=== PATIENT | male | born 1960 | race Caucasian/White ===

== ENCOUNTER → 2017-04-16 | Outpatient (CLI) | payer OTHER | LOC: FIMAGING 07:07 | PROVIDERS: ATTEND Ophthalmology Pediatric Ophthalmology and Strabismus Specialist | DX: H54.61 Unqualified visual loss, right eye, normal vision left eye (principal); H57.11 Ocular pain, right eye ==

== ENCOUNTER → 2018-08-25 | Outpatient (CLI) | payer OTHER ==
[~2018-08-25] MED LIST: IOPAMIDOL (ISOVUE-300) 100 ML BTL ONE
== END ==
LOC: FIMAGING 12:41
PROVIDERS: ATTEND Internal Medicine Gastroenterology
DX: K57.30 Diverticulosis of large intestine without perforation or abscess without bleeding (principal); R10.12 Left upper quadrant pain; I77.89 Other specified disorders of arteries and arterioles
CPT/HCPCS: Q9967